=== PATIENT | female | born 1980 | race Caucasian/White ===

== ENCOUNTER 2018-11-07 09:38 | Emergency (ER) | payer BC, SELFPAY ==
[2018-11-07] MEDS ORDERED: NA CHLORIDE 0.9% 500 ML ONE (10:14)
[2018-11-07 11:11] LABS: Absolute Lymphocytes (CBC) 0.7 K/uL (0.7-4.9); Basophils % 0.4 % (0-1.3); Hematocrit 35.7 % (36.0-45.0); Lymphocytes % 14.1 % (15.3-44.8); MPV 8.5 fL (7.6-11.3); RBC Red Blood Cell Count 4.06 M/uL (3.86-4.86)
[2018-11-07 11:15] LABS: Urine Blood TRACE (NEG); Urine Glucose NEGATIVE (NEG); Urine Protein NEGATIVE (NEG); Urine Specific Gravity <1.005 (1.005-1.030); Urine pH 5.5 (5.0-7.0)
[2018-11-07 11:23] LABS: Urine Bacteria <20 /HPF (<20); Urine Culture Reflex Order REFLEXED; Urine RBC <5 /HPF (NONE SEEN)
[2018-11-07 11:32] LABS: Albumin 3.8 g/dL (3.4-5.0); Bilirubin Direct 0.2 mg/dL (0-0.2); Bilirubin Total 0.8 mg/dL (0.2-1.0); Potassium 3.6 mmol/L (3.5-5.1); Protein, Total 7.7 g/dL (6.4-8.2)
--- NOTE | 2018-11-07 12:23 | ER ---
Nurse's Notes [facility] Name: Gisella Bower Age: 38 yrs Sex: Female : 1980 Arrival Date: 11/07/2018 Time: 09:41 Bed 25 Private MD: Diagnosis: Chills (without fever);Myalgia Presentation: 11/07 09:47 Presenting complaint: Patient states: my muscles ache in my back x 1 week, i woke up tw2 with chills this am, no cough or congestion, i just feel fuzzy like in a fog. Transition of care: patient was not received from another setting of care. Onset of symptoms was November 07, 2018. Risk Assessment: Do you want to hurt yourself or someone else? Patient reports no desire to harm self or others. Initial Sepsis Screen: Does the patient meet any 2 criteria? No. Patient's initial sepsis screen is negative. Does the patient have a suspected source of infection? No. Patient's initial sepsis screen is negative. Care prior to arrival: None. 09:47 Method Of Arrival: Ambulatory tw2 10:13 Acuity: DENT[place] 3 tw2 Triage Assessment: 09:49 General: Appears in no apparent distress. Behavior is calm, cooperative, appropriate tw2 for age. Pain: Complains of pain in "back but ache all over". EENT: No signs and/or symptoms were reported regarding the EENT system. Neuro: Level of Consciousness is awake, alert, obeys commands, Oriented to person, place, time, situation. Cardiovascular: Patient's skin is warm and dry. Respiratory: Airway is patent Respiratory effort is even, unlabored, Respiratory pattern is regular, symmetrical. GI: No signs and/or symptoms were reported involving the gastrointestinal system. : No signs and/or symptoms were reported regarding the genitourinary system. Derm: No signs and/or symptoms reported regarding the dermatologic system. Musculoskeletal: Range of motion: intact in all extremities, Reports "body aches all over". [employer]: 09:48 LMP N/A - . tw2 Historical: - Allergies: 09:52 No Known Allergies; tw2 - Home Meds: 09:52 None [Active]; tw2 - PMHx: 09:52 None; tw2 - PSHx: 09:52 ; Tubal ligation; tw2 - Immunization history:: Adult Immunizations. - Social history:: Smoking status: Patient uses tobacco products, "5 cigarettes a week". - Ebola Screening: : Patient denies travel to an Ebola-affected area in the 21 days before illness onset. - Family history:: not pertinent. - Hospitalizations: : No recent hospitalization is reported. Screenin:56 Abuse screen: Denies threats or abuse. Nutritional screening: No deficits noted. tw2 Tuberculosis screening: No symptoms or risk factors identified. Fall Risk None identified. Assessment: 09:56 Reassessment: see triage assessment. tw2 11:18 Reassessment: Patient appears in no apparent distress at this time. No changes from tw2 previously documented assessment. Patient and/or family updated on plan of care and expected duration. Pain level reassessed. Patient is alert, oriented x 3, equal unlabored respirations, skin warm/dry/pink. 12:19 Reassessment: Patient appears in no apparent distress at this time. No changes from tw2 previously documented assessment. Patient and/or family updated on plan of care and expected duration. Pain level reassessed. Patient is alert, oriented x 3, equal unlabored respirations, skin warm/dry/pink. 12:20 Reassessment: provider at bedside with results at this time. tw2 Vital Signs: 09:48 BP 124 / 75; Pulse 100; Resp 18; Temp 98.3; Pulse Ox 98% on R/A; Weight 90.72 kg (R); tw2 Height 5 ft. 9 in. (175.26 cm) (R); Pain 5/10; 11:18 BP 102 / 52; Pulse 86; Resp 17; Pulse Ox 100% on R/A; tw2 11:40 BP 106 / 64; Pulse 82; Resp 16; Temp 97.5; Pulse Ox 100% ; lt1 12:20 BP 101 / 61; Pulse 86; Resp 17; Pulse Ox 100% on R/A; tw2 09:48 Body Mass Index 29.53 (90.72 kg, 175.26 cm) tw2 ED Course: 09:41 Patient arrived in ED. mr 09:47 Jimena Hewitt, RN is Primary Nurse. tw2 09:47 Bed in low position. Call light in reach. tw2 09:48 Triage completed. tw2 09:50 Arm band placed on. tw2 10:02 Villar, Macario, MD is Attending Physician. rn 10:57 Initial lab(s) drawn, by sc, sent to lab. Urine collected: clean catch specimen, clear, jb1 bisi colored, Flu and/or RSV swab sent to lab. Strep swab sent to lab. Inserted saline lock: 22 gauge in left antecubital area, using aseptic technique. Blood collected. 10:57 Strep Sent. jb1 10:58 Flu Sent. jb1 12:27 No provider procedures requiring assistance completed. IV discontinued, intact, tw2 bleeding controlled, No redness/swelling at site. Pressure dressing applied. Administered Medications: 11:00 Drug: NS 0.9% 500 ml Route: IV; Rate: bolus; Site: left antecubital; tw2 11:55 Follow up: Response: No adverse reaction; IV Status: Completed infusion; IV Intake: tw2 500ml Intake: 11:55 IV: 500ml; Total: 500ml. tw2 Outcome: 12:23 Discharge ordered by MD. rn 12:27 Discharged to home ambulatory, with friend. tw2 12:27 Condition: stable 12:27 Discharge instructions given to patient, friend, Instructed on discharge instructions, follow up and referral plans. Demonstrated understanding of instructions, follow-up care. 12:28 Patient left the ED. tw2 Signatures: Jose Alberto Meneses jb1 EddyFarida mr Macario Villar MD MD rn Wise, Tara, RN RN tw2 Kimberly Hamilton 1 Corrections: (The following items were deleted from the chart) 10:13 09:47 Acuity: DENT[place] 4 tw2 tw2
--- NOTE | 2018-11-07 12:24 | EDPHYS ---
Physician Documentation [facility] Name: Gisella Bower Age: 38 yrs Sex: Female : 1980 Arrival Date: 11/07/2018 Time: 09:41 Bed 25 Private MD: ED Physician Macario Villar HPI: 11/07 10:13 This 38 yrs old Female presents to ER via Ambulatory with complaints of Body rn aches,chills. 10:13 Reports lower back aches, chills, no fever, + fatigue. Denies cough/sore throat. No abd rn pain. No vomiting/diarrhea. Reports feels back and lower body "sore" like did crunches.. 10:14 Onset: The symptoms/episode began/occurred last night. Severity of symptoms: At their rn worst the symptoms were mild in the emergency department the symptoms are unchanged. The patient has not experienced similar symptoms in the past. The patient has not recently seen a physician. RN MDS COORDINATOR: 09:48 LMP N/A - . tw2 Historical: - Allergies: 09:52 No Known Allergies; tw2 - Home Meds: 09:52 None [Active]; tw2 - PMHx: 09:52 None; tw2 - PSHx: 09:52 ; Tubal ligation; tw2 - Immunization history:: Adult Immunizations. - Social history:: Smoking status: Patient uses tobacco products, "5 cigarettes a week". - Ebola Screening: : Patient denies travel to an Ebola-affected area in the 21 days before illness onset. - Family history:: not pertinent. - Hospitalizations: : No recent hospitalization is reported. ROS: 10:14 Constitutional: Negative for fever, and weight loss, Eyes: Negative for injury, pain, rn redness, and discharge, ENT: Negative for injury, pain, and discharge, Neck: Negative for injury, pain, and swelling, Cardiovascular: Negative for chest pain, palpitations, and edema, Respiratory: Negative for shortness of breath, cough, wheezing, and pleuritic chest pain, Abdomen/GI: Negative for abdominal pain, nausea, vomiting, diarrhea, and constipation, Back: Negative for injury MS/Extremity: Negative for injury and deformity, Skin: Negative for injury, rash, and discoloration, Neuro: Negative for headache, weakness, numbness, tingling, and seizure. Exam: 10:14 Constitutional: This is a well developed, well nourished patient who is awake, alert, rn and in no acute distress. Ambulatory to bathroom without assistance. Head/Face: Normocephalic, atraumatic. Eyes: Pupils equal round and reactive to light, extra-ocular motions intact. Lids and lashes normal. Conjunctiva and sclera are non-icteric and not injected. Cornea within normal limits. Periorbital areas with no swelling, redness, or edema. ENT: Mild pharyngeal erythema, no stridor, no swelling Neck: Trachea midline, no thyromegaly or masses palpated, and no cervical lymphadenopathy. Supple, full range of motion without nuchal rigidity, or vertebral point tenderness. No Meningismus. Cardiovascular: Regular rate and rhythm. No pulse deficits. Respiratory: No increased work of breathing, no retractions or nasal flaring. Abdomen/GI: soft, non-tender, no peritoneal signs Back: No spinal tenderness. No costovertebral tenderness. Full range of motion. MS/ Extremity: Pulses equal, no cyanosis. Neurovascular intact. Full, normal range of motion. Equal circumference. Neuro: Awake and alert, GCS 15, oriented to person, place, time, and situation. Cranial nerves II-XII grossly intact. Motor strength 5/5 in all extremities. Sensory grossly intact. Cerebellar exam normal. Normal gait. Vital Signs: 09:48 BP 124 / 75; Pulse 100; Resp 18; Temp 98.3; Pulse Ox 98% on R/A; Weight 90.72 kg (R); tw2 Height 5 ft. 9 in. (175.26 cm) (R); Pain 5/10; 11:18 BP 102 / 52; Pulse 86; Resp 17; Pulse Ox 100% on R/A; tw2 11:40 BP 106 / 64; Pulse 82; Resp 16; Temp 97.5; Pulse Ox 100% ; lt1 12:20 BP 101 / 61; Pulse 86; Resp 17; Pulse Ox 100% on R/A; tw2 09:48 Body Mass Index 29.53 (90.72 kg, 175.26 cm) tw2 MDM: 10:02 Patient medically screened. rn 12:21 Differential Diagnosis flu, mono, strep, viral syndrome, muscle spasm, UTI. Data rn reviewed: vital signs, nurses notes, lab test result(s), EKG, and as a result, I will discharge patient. Counseling: I had a detailed discussion with the patient and/or guardian regarding: the historical points, exam findings, and any diagnostic results supporting the discharge/admit diagnosis, lab results, the need for outpatient follow up, to return to the emergency department if symptoms worsen or persist or if there are any questions or concerns that arise at home. Special discussion: I discussed with the patient/guardian in detail that at this point there is no indication for admission to the hospital. It is understood, however, that if the symptoms persist or worsen the patient needs to return immediately for re-evaluation. ED course: Return precautions given and understood.. 11/07 10:12 Order name: CBC with Diff; Complete Time: 11:40 11/07 10:12 Order name: Basic Metabolic Panel; Complete Time: 11:40 11/07 10:12 Order name: LFT's; Complete Time: 11:40 11/07 10:12 Order name: Lipase; Complete Time: 11:40 11/07 10:12 Order name: Urine Microscopic Only; Complete Time: 11:40 11/07 10:12 Order name: [place] Screen Profile; Complete Time: 12:16 rn 11/07 10:12 Order name: IV Start; Complete Time: 10:58 rn 11/07 10:12 Order name: Urine Test (obtain specimen); Complete Time: 10:57 11/07 10:12 Order name: Flu; Complete Time: 11:54 rn 11/07 10:14 Order name: Strep; Complete Time: 11:40 rn 11/07 11:04 Order name: Urine Dipstick--Ancillary (enter results); Complete Time: 11:40 bd 11/07 11:29 Order name: Urine Culture [facility] 11/07 11:33 Order name: Throat Culture [facility] 11/07 10:12 Order name: Urine Dipstick-Ancillary (obtain specimen); Complete Time: 10:57 rn Administered Medications: 11:00 Drug: NS 0.9% 500 ml Route: IV; Rate: bolus; Site: left antecubital; tw2 11:55 Follow up: Response: No adverse reaction; IV Status: Completed infusion; IV Intake: tw2 500ml Disposition: 11/07/18 12:23 Discharged to Home. Impression: Chills (without fever), Myalgia. - Condition is Stable. - Discharge Instructions: Musculoskeletal Pain. - Medication Reconciliation Form, Thank You Letter, Antibiotic Education, Prescription Opioid Use, Work release form form. - Follow up: Private Physician; When: As needed; Reason: Recheck today's complaints, Re-evaluation by your physician. - Problem is new. - Symptoms have improved. Signatures: Dispatcher [employer] EDMS Macario Villar MD MD rn Wise, Tara, RN RN tw2 Corrections: (The following items were deleted from the chart) 12:28 12:23 11/07/2018 12:23 Discharged to Home. Impression: Chills (without fever); Myalgia. tw2 Condition is Stable. Forms are Work release form, Medication Reconciliation Form, Thank You Letter, Antibiotic Education, Prescription Opioid Use. Follow up: Private Physician; When: As needed; Reason: Recheck today's complaints, Re-evaluation by your physician. Problem is new. Symptoms have improved. rn
== END 2018-11-07 12:28 | disposition home or self-care (01) ==
LOC: ER 09:38
DX: M79.10 Myalgia, unspecified site (principal); Z72.0 Tobacco use
CPT/HCPCS: 36415; 80048; 80076; 81003; 81015; 83690; 85025; 86308; 87070; 87081; 87086; 87088; 87804; 96360; 99284